=== PATIENT | female | born 2000 | race African-American/Black ===

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

== ENCOUNTER 2022-07-23 22:57 | Outpatient (CLI) | payer OTHER ==
[~2022-07-23] VITALS: Ht 157.5 cm; Wt 70.3 kg
[~2022-07-23 22:57] MED LIST: ACET-907 PO; CRAN450T4 PO; DOK1CAP4 PO; PERCOCET PO; PRENTAB9 PO
[2022-07-23 23:19] VITALS: BP 128/81
[2022-07-24 01:31] VITALS: BP 134/74
[2022-07-25] MEDS ORDERED: ACET-897 PO (09:09)
[2022-07-25] MEDS ORDERED: BENA25CA4 PO (09:11)
[2022-07-25] MEDS ORDERED: IRON65TA2 PO (09:11)
[2022-07-25] MEDS ORDERED: VITA100T59 PO (09:11)
== END 2022-07-24 01:22 | disposition home or self-care (01) ==
LOC: M LDO 22:57
PROVIDERS: ATTEND Obstetrics & Gynecology
DX: O47.1 False labor at or after 37 completed weeks of gestation (principal); O34.219 Maternal care for unspecified type scar from previous cesarean delivery; Z3A.37 37 weeks gestation of pregnancy
CPT/HCPCS: 59025; 81001; G0463

== ENCOUNTER 2022-07-24 23:48 | Inpatient (IN) | payer OTHER ==
[~2022-07-24] VITALS: Ht 157.5 cm; Wt 69.7 kg
[2022-07-25] VITALS (27 sets, daily range): BP systolic 89–154; BP diastolic 48–102
[2022-07-25] MEDS ORDERED: LACTATED RINGER'S 1000 ML IV STA (02:27)
[2022-07-25] MEDS ORDERED: TRANEXAMIC ACID INJection 1,000 MG in NS 100 ML IV PRN (02:30)
[2022-07-25] MEDS ORDERED: LIDOCAINE 1% MDV 20ML VIAL INFIL PRN (02:30)
[2022-07-25] MEDS ORDERED: OXYTOCIN DRIP 30 UNITS in IV 1 EA IV PRN ×4 (02:30)
[2022-07-25] MEDS ORDERED: METHYLERGONOVINE MALEATE 0.2MG/ML 1ML VIAL IM PRN (02:30)
[2022-07-25 03:29] LABS: HEMATOCRIT 38.5 % (36.0-47.0); HEMOGLOBIN 12.3 g/dl (12.0-15.5); MEAN CORPUSCULAR HEMOGLOBIN 28.2 pg (27.0-33.0); MEAN CORPUSCULAR HGB CONC 31.9 g/dl (32.0-36.5); MEAN CORPUSCULAR VOLUME 88.3 fl (80.0-96.0); PLATELET COUNT, AUTOMATED 156 10^3/uL (150-450); RED BLOOD COUNT 4.36 10^6/uL (4.00-5.40); WHITE BLOOD COUNT 11.4 10^3/uL (4.0-10.0)
[2022-07-25] MEDS ORDERED: LR 500 ML IV PRN (04:10)
[2022-07-25] MEDS ORDERED: EPIDURAL/PCA KEYS XX PRN (04:10)
[2022-07-25] MEDS ORDERED: NALOXONE INJ 0.4MG/1ML VIAL IV PRN (04:10)
[2022-07-25] MEDS ORDERED: ONDANSETRON 4MG 2ML VIAL IV PRN (04:10)
[2022-07-25] MEDS ORDERED: FENTANYL/ROPIVACAINE/NACL BAG 100 ML EPIDURAL SCH (04:10)
[2022-07-25] MEDS ORDERED: ePHEDrine SULFATE 25 MG/5 ML(5MG/ML) SYRINGE IVP PRN (04:10)
[2022-07-25] MEDS ORDERED: diphenhydrAMINE 50MG/ML VIAL IV PRN (04:10)
[2022-07-25] MEDS ORDERED: OXYTOCIN DRIP 30 UNITS in IV 1 EA IV SCH (09:05)
[2022-07-25] MEDS ORDERED: ACET-897 PO (09:09)
[2022-07-25] MEDS ORDERED: BENA25CA4 PO (09:11)
[2022-07-25] MEDS ORDERED: VITA100T59 PO (09:11)
[2022-07-25] MEDS ORDERED: IRON65TA2 PO (09:11)
[2022-07-25] MEDS: LR 1,000 ML IV SCH ×3 (09:37→18:30)
[2022-07-25] MEDS ORDERED: RHOGAM 300MCG (1500IU) INJ IM SCH (13:35)
[2022-07-25] MEDS ORDERED: DOCUSATE SODIUM 100MG CAPSULE PO PRN (13:35)
[2022-07-25] MEDS ORDERED: DIBUCAINE 1% OINTMENT 30GM TOP PRN (13:35)
[2022-07-25] MEDS ORDERED: METHYLERGONOVINE MALEATE 0.2 MG TAB PO PRN (13:35)
[2022-07-25] MEDS: ACETAMINOPHEN TAB 650MG DOSE (2X325MG) PO PRN (18:40)
[2022-07-26] MEDS: LR 1,000 ML IV SCH (02:30)
[2022-07-26 06:00] VITALS: BP 98/49
[2022-07-26] MEDS ORDERED: PRENATAL VITAMINS CHEWABLE TABLET PO SCH (09:00)
[2022-07-26] MEDS: ACETAMINOPHEN TAB 650MG DOSE (2X325MG) PO PRN (15:49)
[2022-07-27] MEDS ORDERED: MEASLES,MUMPS,RUBELLA VACCINE INJ (MMR-II) SC.IMMUN ONE (09:00)
== END 2022-07-26 18:00 | disposition home or self-care (01) | DRG 807 ==
LOC: M LDO 23:48 → M LDI 07-25 02:24 → M OBS 07-25 15:10
PROVIDERS: ADMIT Obstetrics & Gynecology; ATTEND Registered Nurse
PROC: 10E0XZZ Delivery of Products of Conception, External Approach (ICD-10-PCS; principal; 2022-07-25)
PROC: 10907ZC Drainage of Amniotic Fluid, Therapeutic from Products of Conception, Via Natural or Artificial Opening (ICD-10-PCS; 2022-07-25)
PROC: 0HQ9XZZ Repair Perineum Skin, External Approach (ICD-10-PCS; 2022-07-25)
DX: O34.219 Maternal care for unspecified type scar from previous cesarean delivery (principal); Z37.0 Single live birth; Z3A.38 38 weeks gestation of pregnancy; O69.81X0 Labor and delivery complicated by cord around neck, without compression, not applicable or unspecified; O70.0 First degree perineal laceration during delivery; Z86.16 Personal history of COVID-19